=== PATIENT | male | born 1985 | race American Indian/Alaskan Native ===

== ENCOUNTER 2016-12-01 09:40 | Emergency (ER) | payer MEDICAID ==
--- NOTE | 2016-12-01 12:35 | Emergency Department Report ---
ED General Adult HPI - General Chief complaint: Abdominal Pain Stated complaint: HERNIA/N/V Time Seen by Provider: 12/01/16 12:34 Source: patient, EMS Mode of arrival: Ambulatory Limitations: No Limitations - History of Present Illness Initial comments: Patient is a 31-year-old male has a history of hiatal hernia who presents with abdominal pain and nausea and vomiting. Patient is upper epigastric pain as a 10 out of 10 on a makes it worse nothing makes it better. Patient states that he isn't having this pain the last couple months. His vomitus has been nonbloody and nonbilious. Patient has not had any diarrhea or any fever with his symptoms. - Related Data Home Medications Medication Instructions Recorded Confirmed Last Taken Ranitidine HCl [Zantac] 150 mg PO DAILY 05/03/13 05/03/13 Unknown Previous Rx's Medication Instructions Recorded Last Taken Type Hyoscyamine Subl [Levsin Sl] 0.125 mg SL Q4HR PRN #7 tablet 05/03/13 Unknown Rx Ondansetron [Zofran Odt] 4 mg PO Q4H #14 tab.rapdis 05/03/13 Unknown Rx Promethazine [Phenergan TAB] 25 mg PO Q6HR PRN #20 tab 12/01/16 Unknown Rx Allergies Allergy/AdvReac Type Severity Reaction Status Date / Time No Known Allergies Allergy Verified 05/03/13 00:07 ED Review of Systems ROS: Stated complaint: HERNIA/N/V Other details as noted in HPI Constitutional: denies: chills, fever Eyes: denies: eye pain, eye discharge, vision change ENT: denies: ear pain, throat pain Respiratory: denies: cough, shortness of breath, wheezing Cardiovascular: denies: chest pain, palpitations Endocrine: no symptoms reported Gastrointestinal: abdominal pain, nausea, vomiting. denies: diarrhea Genitourinary: denies: urgency, dysuria Musculoskeletal: denies: back pain, joint swelling, arthralgia Skin: denies: rash, lesions Neurological: denies: headache, weakness, paresthesias Psychiatric: denies: anxiety, depression Hematological/Lymphatic: denies: easy bleeding, easy bruising ED Past Medical Hx - Past Medical History Hx GERD: Yes Hx HIV: Yes (not on meds) Additional medical history: Hemorroids - Surgical History Past Surgical History?: No - Social History Smoking Status: Never Smoker Substance Use Type: Alcohol - Medications Home Medications: Home Medications Medication Instructions Recorded Confirmed Last Taken Type Hyoscyamine Subl [Levsin Sl] 0.125 mg SL Q4HR PRN #7 tablet 05/03/13 Unknown Rx Ondansetron [Zofran Odt] 4 mg PO Q4H #14 tab.rapdis 05/03/13 Unknown Rx Ranitidine HCl [Zantac] 150 mg PO DAILY 05/03/13 05/03/13 Unknown History Promethazine [Phenergan TAB] 25 mg PO Q6HR PRN #20 tab 12/01/16 Unknown Rx ED Physical Exam - General Limitations: No Limitations General appearance: alert, in no apparent distress - Head Head exam: Present: atraumatic, normocephalic - Eye Eye exam: Present: normal appearance - ENT ENT exam: Present: mucous membranes moist - Neck Neck exam: Present: normal inspection - Respiratory Respiratory exam: Present: normal lung sounds bilaterally. Absent: respiratory distress - Cardiovascular Cardiovascular Exam: Present: regular rate, normal rhythm. Absent: systolic murmur, diastolic murmur, rubs, gallop - GI/Abdominal GI/Abdominal exam: Present: soft, normal bowel sounds - Rectal Rectal exam: Present: deferred - Extremities Exam Extremities exam: Present: normal inspection - Back Exam Back exam: Present: normal inspection - Neurological Exam Neurological exam: Present: alert, oriented X3 - Psychiatric Psychiatric exam: Present: normal affect, normal mood - Skin Skin exam: Present: warm, dry, intact, normal color. Absent: rash ED Course Vital Signs 12/01/16 12/01/16 12/01/16 09:44 12:13 13:41 Temperature 97.9 F Pulse Rate 77 74 Respiratory 20 24 Rate Blood Pressure 154/111 130/88 O2 Sat by Pulse 100 100 Oximetry - Reevaluation(s) Reevaluation #1: 12/01/16 15:18 Patient's abdominal pain is feeling better I will send the patient ED Medical Decision Making - Lab Data Result diagrams: 12/01/16 12:58 12/01/16 12:58 Lab Results 12/01/16 12/01/16 Range/Units 12:58 12:58 WBC 6.0 (4.5-11.0) K/mm3 RBC 4.82 (3.65-5.03) M/mm3 Hgb 14.7 (11.8-15.2) gm/dl Hct 44.7 (35.5-45.6) % MCV 93 (84-94) fl MCH 31 (28-32) pg MCHC 33 (32-34) % RDW 14.8 (13.2-15.2) % Plt Count 303 (140-440) K/mm3 Lymph % (Auto) 19.0 (13.4-35.0) % Elbert % (Auto) 3.6 (0.0-7.3) % Eos % (Auto) 0.3 (0.0-4.3) % Baso % (Auto) 0.6 (0.0-1.8) % Lymph # 1.1 L (1.2-5.4) K/mm3 Elbert # 0.2 (0.0-0.8) K/mm3 Eos # 0.0 (0.0-0.4) K/mm3 Baso # 0.0 (0.0-0.1) K/mm3 Seg Neutrophils % 76.5 H (40.0-70.0) % Seg Neutrophils # 4.6 (1.8-7.7) K/mm3 Sodium 139 (137-145) mmol/L Potassium 3.7 (3.6-5.0) mmol/L Chloride 101.8 (98-107) mmol/L Carbon Dioxide 25 (22-30) mmol/L Anion Gap 16 mmol/L BUN 6 L (9-20) mg/dL Creatinine 0.9 (0.8-1.5) mg/dL Estimated GFR > 60 ml/min BUN/Creatinine Ratio 6.66 % Glucose 121 H (75-100) mg/dL Calcium 9.0 (8.4-10.2) mg/dL Total Bilirubin 0.40 (0.1-1.2) mg/dL AST 17 (5-40) units/L ALT 12 (7-56) units/L Alkaline Phosphatase 86 (35-129) units/L Total Protein 7.9 (6.3-8.2) g/dL Albumin 4.2 (3.9-5) g/dL Albumin/Globulin Ratio 1.1 % Lipase 14 (13-60) units/L - Radiology Data Radiology results: image reviewed Chest x-ray shows: No acute cardiopulmonary disease - Medical Decision Making Chief medical diagnosis: Hiatal hernia Differential medical diagnosis: Pancreatitis, cholelithiasis, metabolic abnormality, CHEST x-ray CBC CMP IV pain medication IV anti-emetics Patient's lab work patient is feeling better and has received symptomatic treatment for his hiatal hernia. I will send patient additional verbal discharge instructions were given. Critical care attestation.: If time is entered above; I have spent that time in minutes in the direct care of this critically ill patient, excluding procedure time. ED Disposition Clinical Impression: Hiatal hernia Abdominal pain Qualifiers: Abdominal location: epigastric Qualified Code(s): R10.13 - Epigastric pain Nausea and vomiting Qualifiers: Vomiting type: unspecified Vomiting Intractability: non-intractable Qualified Code(s): R11.2 - Nausea with vomiting, unspecified Disposition: DC- TO HOME OR SELFCARE Is pt being admited?: No Does the pt Need Aspirin: No Condition: Stable Prescriptions: Promethazine [Phenergan TAB] 25 mg PO Q6HR PRN #20 tab PRN Reason: Nausea Referrals: PRIMARY CARE,MD [Primary Care Provider] - 3-5 Days
[2016-12-01] MEDS ORDERED: MORPHINE IV ONE (12:36)
[2016-12-01 13:15] LABS: Basophils % (Auto) 0.6 % (0.0-1.8); Eosinophils % (Auto) 0.3 % (0.0-4.3); Hematocrit 44.7 % (35.5-45.6); Hemoglobin 14.7 gm/dl (11.8-15.2); Mean Corpuscular HGB Conc 33 % (32-34); Mean Corpuscular Hemoglobin 31 pg (28-32); Mean Corpuscular Volume 93 fl (84-94); Platelet Count 303 K/mm3 (140-440); Red Blood Count 4.82 M/mm3 (3.65-5.03); Red Cell Distribution Width 14.8 % (13.2-15.2)
[2016-12-01] MEDS ORDERED: ZOFRAN IV ONE (13:41)
[2016-12-01 13:50] LABS: Alanine Aminotransferase 12 units/L (7-56); Albumin 4.2 g/dL (3.9-5); Albumin/Globulin Ratio 1.1 %; Alkaline Phosphatase 86 units/L (35-129); Anion Gap 16 mmol/L; BUN/Creatinine Ratio 6.66; Blood Urea Nitrogen 6 mg/dL (9-20); Carbon Dioxide 25 mmol/L (22-30); Chloride 101.8 mmol/L (98-107); Glucose 121 mg/dL (75-100); Potassium 3.7 mmol/L (3.6-5.0); Sodium 139 mmol/L (137-145); Total Protein 7.9 g/dL (6.3-8.2)
[2016-12-01] MEDS ORDERED: PHENERGAN PO ONE (14:40)
[2016-12-01] MEDS ORDERED: NORCO 5/325 PO ONE (14:40)
[2016-12-01 14:45] LABS: Lipase 14 units/L (13-60)
[2016-12-01 16:14] VITALS: BP 127/73
--- NOTE | 2016-12-02 10:04 | XRay Report ---
ROUTINE CHEST, TWO VIEWS: HISTORY: Nausea and vomiting, hiatal hernia. The trachea, heart, mediastinal contour, lung kevin and bony thorax are unremarkable. No hiatal hernia is visualized. IMPRESSION: Unremarkable chest x-ray.
== END 2016-12-01 18:46 | disposition home or self-care (01) ==
LOC: ED 09:40
DX: K44.9 Diaphragmatic hernia without obstruction or gangrene (principal); R10.13 Epigastric pain; R11.2 Nausea with vomiting, unspecified; K21.9 Gastro-esophageal reflux disease without esophagitis
CPT/HCPCS: 36415; 71020; 80053; 83690; 85025; 96374; 96375; 99284; J2270; J2405; Q0169